=== PATIENT | female | born 1990 | race Caucasian/White ===

== ENCOUNTER 2016-06-03 20:13 | Observation (INO) | payer MEDICAID ==
[2016-06-03] MEDS ORDERED: ONDANSETRON 2MG/ML, 2ML ONE (22:21)
[2016-06-03] MEDS ORDERED: D5%-LACTATED RINGERS 1,000 ML IV ONE ×2 (22:30→23:30)
[2016-06-03] MEDS ORDERED: ONDANSETRON 2MG/ML, 2ML IVPush PRN (22:30)
== END 2016-06-04 01:06 | disposition home or self-care (01) ==
LOC: LDOP 20:13 → LDIP 21:44
PROVIDERS: ADMIT Obstetrics & Gynecology; ATTEND Obstetrics & Gynecology
DX: O26.899 Other specified pregnancy related conditions, unspecified trimester (principal); M54.9 Dorsalgia, unspecified; Z3A.00 Weeks of gestation of pregnancy not specified
CPT/HCPCS: 59025; 81003; 87086; 96361; 96374; G0378; J2405; 96360; 99201; 99211; G0463; J7121

== ENCOUNTER 2016-07-30 18:36 | Outpatient (CLI) | payer MEDICAID ==
[~2016-07-30] VITALS: Ht 162.6 cm; Wt 133.6 kg
[2016-07-30 20:37] VITALS: BP 136/80
== END 2016-07-30 20:35 | disposition home or self-care (01) ==
LOC: LDOP 18:36
PROVIDERS: ATTEND Obstetrics & Gynecology
DX: O26.893 Other specified pregnancy related conditions, third trimester (principal); O42.92 Full-term premature rupture of membranes, unspecified as to length of time between rupture and onset of labor; O62.9 Abnormality of forces of labor, unspecified; O48.0 Post-term pregnancy; R10.9 Unspecified abdominal pain; Z3A.40 40 weeks gestation of pregnancy
CPT/HCPCS: 59025; 81001; 87086; 89060; 99211; G0463; Q0114

== ENCOUNTER 2016-08-03 20:39 | Observation (INO) | payer MEDICAID | END 2016-08-04 00:30 | disposition home or self-care (01) | LOC: LDOP 20:39 → LDIP 21:31 | PROVIDERS: ADMIT Obstetrics & Gynecology; ATTEND Obstetrics & Gynecology | DX: O48.0 Post-term pregnancy (principal); Z3A.40 40 weeks gestation of pregnancy | CPT/HCPCS: 36415; 59025; 85025; 85384; 85460; 99211; G0378; G0463 ==

== ENCOUNTER 2016-08-06 08:47 | Inpatient (IN) | payer MEDICAID ==
[~2016-08-06] VITALS: Ht 162.6 cm; Wt 134.1 kg
[2016-08-06] MEDS: FENTANYL PF 100 MCG/2ML IVPush PRN (05:10)
[2016-08-06] MEDS: LACTATED RINGERS 1,000 ML IV SCH (20:30)
[2016-08-06] MEDS ORDERED: MISOPROSTOL 25 MCG TABLET ONE (20:56)
[2016-08-06] MEDS ORDERED: NEWBORN KIT ONE (21:39)
[2016-08-07] MEDS ORDERED: OXYTOCIN 10 UNITS/ML, 1ML ONE (02:20)
[2016-08-07] MEDS ORDERED: KETOROLAC 30 MG/1 ML ONE (02:20)
[2016-08-07] MEDS ORDERED: EPHEDRINE 50 MG/ML, 1ML ONE (02:20)
[2016-08-07] MEDS ORDERED: CEFAZOLIN 1,000 MG ONE (02:20)
[2016-08-07] MEDS ORDERED: METOCLOPRAMIDE 5 MG/ML, 2ML ONE (02:20)
[2016-08-07] MEDS ORDERED: FENTANYL PF 100 MCG/2ML ONE ×2 (05:02→07:53)
[2016-08-07] MEDS ORDERED: ONDANSETRON 2MG/ML, 2ML ONE (07:52)
[2016-08-07] MEDS: FENTANYL PF 100 MCG/2ML IVPush PRN (08:11)
[2016-08-07] MEDS: LACTATED RINGERS 1,000 ML IV SCH ×3 (08:45→16:58)
[2016-08-07] MEDS ORDERED: FENTANYL/BUPIV./NS/PF 250 ML EPIDCONT ONE (13:52)
[2016-08-07] MEDS ORDERED: OXYTOCIN 30U/ 0.9% NaCL 500ML 500 ML IV PRN (14:10)
[2016-08-07] MEDS ORDERED: OXYTOCIN 30U/ 0.9% NaCL 500ML 500 ML IV ONE (14:10)
[2016-08-07] MEDS ORDERED: ONDANSETRON 2MG/ML, 2ML IVPush PRN (14:30)
[2016-08-07] MEDS ORDERED: TERBUTALINE 1 MG/ML, 1ML IVPush PRN (14:30)
[2016-08-07] MEDS ORDERED: FENTANYL/BUPIV./NS/PF 250 ML EPIDCONT SCH (14:34)
[2016-08-07] MEDS ORDERED: LACTATED RINGERS 1,000 ML IVBOLUS PRN (15:00)
[2016-08-07] MEDS ORDERED: EPHEDRINE 50 MG/ML, 1ML IVPush PRN (15:00)
[2016-08-07] MEDS ORDERED: NALOXONE 0.4 MG/ML, 1ML IVPush PRN (15:00)
[2016-08-07] MEDS ORDERED: LIDOCAINE 1%, 20ML ONE (15:47)
[2016-08-07] MEDS ORDERED: MISOPROSTOL 200 MCG TABLET ONE (15:47)
[2016-08-07] MEDS ORDERED: OXYTOCIN 30U/ 0.9% NaCL 500ML 500 ML ONE (15:47)
[2016-08-07] MEDS: D5%-LACTATED RINGERS 1,000 ML IV SCH (22:10)
[2016-08-07] MEDS ORDERED: LACTATED RINGERS 1,000 ML INTUTE PRN (23:00)
[2016-08-07] MEDS ORDERED: LACTATED RINGERS 1,000 ML INTUTE SCH (23:00)
[2016-08-08] MEDS ORDERED: MISOPROSTOL 25 MCG TABLET VG PRN (01:00)
[2016-08-08] MEDS ORDERED: LIDOCAINE/MPF 2%-EPI 1:200K, 20 ML ONE (01:41)
[2016-08-08] MEDS: LACTATED RINGERS 1,000 ML IV SCH ×8 (01:54→21:54)
[2016-08-08] MEDS: OXYTOCIN 30U/ 0.9% NaCL 500ML 500 ML IV SCH ×3 (01:54→21:54)
[2016-08-08] MEDS ORDERED: ACETAMINOPHEN 325 MG TABLET PO PRN ×3 (02:00)
[2016-08-08] MEDS ORDERED: CARBOPROST TROMETHAMINE 250 MCG/ML, 1ML IM PRN (02:00)
[2016-08-08] MEDS ORDERED: METOCLOPRAMIDE 5 MG/ML, 2ML IV PRN (02:00)
[2016-08-08] MEDS ORDERED: ONDANSETRON 2MG/ML, 2ML IV PRN (02:00)
[2016-08-08] MEDS ORDERED: GLYCERIN ADULT SUPP PR PRN (02:00)
[2016-08-08] MEDS ORDERED: OXYcodone/APAP 5/325MG TABLET PO PRN (02:00)
[2016-08-08] MEDS ORDERED: MEPERIDINE/PF 25MG/0.5ML IM PRN (02:00)
[2016-08-08] MEDS ORDERED: BISACODYL 10 MG SUPP PR PRN (02:00)
[2016-08-08] MEDS ORDERED: MEPERIDINE/PF 50 MG/ML IM PRN (02:00)
[2016-08-08] MEDS ORDERED: CALCIUM CARBONATE 500 MG TAB.CHEW PO PRN (02:00)
[2016-08-08] MEDS ORDERED: DIPH,PERTUSS(ACELL),TET VAC/PF NC IM-VACC PRN (02:00)
[2016-08-08] MEDS ORDERED: SIMETHICONE 80 MG CHEW TAB PO PRN (02:00)
[2016-08-08] MEDS ORDERED: MISOPROSTOL 200 MCG TABLET PR PRN (02:00)
[2016-08-08] MEDS ORDERED: METOCLOPRAMIDE 5 MG/ML, 2ML ONE (02:08)
[2016-08-08] MEDS ORDERED: SODIUM CITRATE/CITRIC ACID 30 ML UDC ONE (02:08)
[2016-08-08] MEDS ORDERED: FENTANYL PF 100 MCG/2ML ONE (02:46)
[2016-08-08] MEDS: KETOROLAC 30 MG/1 ML IV SCH ×4 (03:00→22:33)
[2016-08-08] MEDS ORDERED: morphine SULFATE 10 MG/ML, 1ML ONE (03:48)
[2016-08-08] MEDS: morphine SULFATE 10 MG/ML, 1ML IVPush PRN ×4 (03:52→05:30)
[2016-08-08] MEDS ORDERED: LACTATED RINGERS 1,000 ML IV SCH ×2 (04:45→05:00)
[2016-08-08] MEDS ORDERED: OXYTOCIN 30U/ 0.9% NaCL 500ML 500 ML IV SCH (04:45)
[2016-08-08] MEDS ORDERED: LACTATED RINGERS 1,000 ML IVBOLUS ONE (05:00)
[2016-08-08 05:50] VITALS: BP 119/77
[2016-08-08] MEDS: D5%-LACTATED RINGERS 1,000 ML IV SCH (06:10)
[2016-08-08 07:20] VITALS: BP 124/70
[2016-08-08] MEDS: PRENATAL VIT/IRON/FA 1 EACH TABLET PO SCH (09:32)
[2016-08-08] MEDS: DOCUSATE 100 MG CAPSULE PO PRN (09:32)
[2016-08-08 11:31] VITALS: BP 110/60
[2016-08-08 15:49] VITALS: BP 98/52
[2016-08-08 20:36] VITALS: BP 108/74
[2016-08-09] MEDS: OXYTOCIN 30U/ 0.9% NaCL 500ML 500 ML IV SCH (00:01)
[2016-08-09 01:34] VITALS: BP 111/68
[2016-08-09] MEDS: LACTATED RINGERS 1,000 ML IV SCH ×4 (01:54→17:54)
[2016-08-09 04:49] VITALS: BP 112/71
[2016-08-09] MEDS: KETOROLAC 30 MG/1 ML IV SCH ×4 (04:50→21:30)
[2016-08-09] MEDS: OXYcodone/APAP 5/325MG TABLET PO PRN ×3 (04:58→22:12)
[2016-08-09 07:10] VITALS: BP 103/59
[2016-08-09] MEDS: DOCUSATE 100 MG CAPSULE PO PRN ×2 (10:23→20:36)
[2016-08-09] MEDS: PRENATAL VIT/IRON/FA 1 EACH TABLET PO SCH (10:24)
[2016-08-09 11:13] LABS: ASPARTATE AMINO TRANSFERASE 13 U/L (15-37); BLOOD UREA NITROGEN 16 mg/dL (7-18)
[2016-08-09 20:30] VITALS: BP 116/70
[2016-08-09] MEDS: IBUPROFEN 600 MG TABLET PO PRN (20:36)
[2016-08-10 00:40] VITALS: BP 108/66
[2016-08-10] MEDS: LACTATED RINGERS 1,000 ML IV SCH ×2 (01:54→03:54)
[2016-08-10 03:33] VITALS: BP 127/89
[2016-08-10] MEDS: OXYTOCIN 30U/ 0.9% NaCL 500ML 500 ML IV SCH (03:54)
[2016-08-10] MEDS: IBUPROFEN 600 MG TABLET PO PRN (07:57)
[2016-08-10] MEDS: OXYcodone/APAP 5/325MG TABLET PO PRN (07:57)
[2016-08-10] MEDS: DOCUSATE 100 MG CAPSULE PO PRN (07:57)
[2016-08-10] MEDS: PRENATAL VIT/IRON/FA 1 EACH TABLET PO SCH (07:57)
[2016-08-10 08:38] VITALS: BP 132/85
[2016-08-10] MEDS ORDERED: OXYC-302 PO (11:39)
[2016-08-10] MEDS ORDERED: IBUP800T PO (11:39)
== END 2016-08-10 12:34 | disposition home or self-care (01) | DRG 765 ==
LOC: LDIP 20:00 → 2NW 08-08 05:30
PROVIDERS: ADMIT Obstetrics & Gynecology; ATTEND Obstetrics & Gynecology
PROC: 10D00Z1 Extraction of Products of Conception, Low, Open Approach (ICD-10-PCS; principal; 2016-08-08)
DX: O62.1 Secondary uterine inertia (principal); Z68.43 Body mass index [BMI] 50.0-59.9, adult; O99.354 Diseases of the nervous system complicating childbirth; O48.0 Post-term pregnancy; Z37.0 Single live birth; Z3A.41 41 weeks gestation of pregnancy; E66.01 Morbid (severe) obesity due to excess calories; O76 Abnormality in fetal heart rate and rhythm complicating labor and delivery; O99.214 Obesity complicating childbirth; O69.81X0 Labor and delivery complicated by cord around neck, without compression, not applicable or unspecified; O77.0 Labor and delivery complicated by meconium in amniotic fluid; G43.909 Migraine, unspecified, not intractable, without status migrainosus
CPT/HCPCS: 36415; 80053; 81001; 82248; 82803; 85025; 86850; 86900; 87086; J0690; J1885; J2405; J3010; J2270; J2590; J2765; J7120

== ENCOUNTER 2016-11-19 13:29 | Emergency (ER) | payer MEDICAID ==
[~2016-11-19] VITALS: Ht 162.6 cm; Wt 126.0 kg
[~2016-11-19 13:29] MED LIST: IBUP-1223 PO; OXYC-302 PO
[2016-11-19 13:43] VITALS: BP 125/84
== END 2016-11-19 14:50 | disposition home or self-care (01) ==
LOC: ED 14:30
DX: S20.362A Insect bite (nonvenomous) of left front wall of thorax, initial encounter (principal); S40.262A Insect bite (nonvenomous) of left shoulder, initial encounter; S30.861A Insect bite (nonvenomous) of abdominal wall, initial encounter; I10 Essential (primary) hypertension; W57.XXXA Bitten or stung by nonvenomous insect and other nonvenomous arthropods, initial encounter; Y93.89 Activity, other specified; Y92.89 Other specified places as the place of occurrence of the external cause; Y99.8 Other external cause status
CPT/HCPCS: 99282

== ENCOUNTER 2017-04-28 14:49 | Inpatient (IN) | payer MEDICAID ==
[~2017-04-28] VITALS: Ht 162.6 cm; Wt 137.9 kg
[2017-04-28 15:51] LABS: BASOPHILS # (AUTO) 0.02 x10^3/uL (0-0.1); BASOPHILS % (AUTO) 0 % (0-1); EOSINOPHILS # (AUTO) 0.01 x10^3/uL (0-0.4); EOSINOPHILS % (AUTO) 0 % (1-7); LYMPHOCYTES # (AUTO) 1.25 x10^3/uL (1-3.4); LYMPHOCYTES % (AUTO) 14 % (22-44); MD NO; MEAN CORPUSCULAR HEMOGLOBIN 28.1 pg (27.0-34.8); MEAN CORPUSCULAR HGB CONC 33.7 g/dL (32.4-35.8); MEAN CORPUSCULAR VOLUME 83.4 fL (80-100); MEAN PLATELET VOLUME 8.9 fL (7.4-10.4); MONOCYTES # (AUTO) 0.55 x10^3/uL (0.2-0.8); MONOCYTES % (AUTO) 6 % (2-9); NEUTROPHILS # (AUTO) 7.43 x10^3/uL (1.8-6.8); NEUTROPHILS % (AUTO) 80 % (42-75); PLATELET COUNT 270 x10^3/uL (130-400); RED BLOOD COUNT 5.53 x10^6/uL (3.82-5.3); RED CELL DISTRIBUTION WIDTH 12.6 % (9.6-15.2)
[2017-04-28] MEDS ORDERED: PROMETHAZINE 25 MG/ML, 1ML IM ONE (16:00)
[2017-04-28] MEDS ORDERED: SODIUM CHLORIDE FLUSH 10ML SYR IVF ONE (16:00)
[2017-04-28] MEDS ORDERED: SODIUM CHLORIDE 0.9% 1,000ML IVBOLUS ONE (16:00)
[2017-04-28] MEDS ORDERED: MORPHINE SULFATE 4 MG/ML, 1ML IVPush PRN (16:00)
[2017-04-28] MEDS ORDERED: ONDANSETRON 2MG/ML, 2ML IVPush ONE (16:00)
[2017-04-28 16:04] LABS: ALBUMIN 3.3 g/dL (3.4-5.0); ANION GAP 8 mmol/L (5-15); CALCIUM 8.7 mg/dL (8.5-10.1); CHLORIDE 110 mmol/L (98-107)
[2017-04-28] MEDS ORDERED: MORPHINE SULFATE 4 MG/ML, 1ML ONE (16:06)
[2017-04-28] MEDS ORDERED: PROMETHAZINE 25 MG/ML, 1ML ONE ×2 (16:06→19:55)
[2017-04-28] MEDS ORDERED: ONDANSETRON 2MG/ML, 2ML ONE ×2 (16:07→19:32)
[2017-04-28 16:12] LABS: ALANINE AMINOTRANSFERASE 406 U/L (12-78); ALKALINE PHOSPHATASE 141 U/L (45-117); BILIRUBIN,TOTAL 2.4 mg/dL (0.2-1.0); CREATININE 0.92 mg/dL (0.55-1.02); TOTAL PROTEIN 7.1 g/dL (6.4-8.2)
[2017-04-28 16:41] LABS: MICROSCOPIC INDICATED
[2017-04-28 16:44] LABS: CULTURE INDICATED? YES
[2017-04-28] MEDS ORDERED: CEFOTETAN PMX 1GM/50ML 50 ML IV ONE (17:00)
[2017-04-28] MEDS ORDERED: CEFOTETAN PMX 1GM/50ML 50 ML ONE ×2 (17:47→19:12)
[2017-04-28] MEDS ORDERED: EPINEPHRINE 1 MG/ML, 1ML ONE (18:27)
[2017-04-28] MEDS ORDERED: BUPIVACAINE/PF 0.5% ONE (18:27)
[2017-04-28] MEDS: SODIUM CHLORIDE 0.9% 1,000 ML IV SCH (18:31)
[2017-04-28] MEDS ORDERED: GLYCOPYRROLATE 0.2MG/1ML, 5ML ONE (18:57)
[2017-04-28] MEDS ORDERED: DEXAMETHASONE 4 MG/ML, 1ML ONE ×2 (18:57→19:12)
[2017-04-28] MEDS ORDERED: PROPOFOL 10 MG/ML, 20ML ONE ×2 (18:57→19:12)
[2017-04-28] MEDS ORDERED: NEOSTIGMINE 1 MG/ML, 10ML ONE ×2 (18:57→19:40)
[2017-04-28] MEDS ORDERED: ROCURONIUM 10MG/ML,5ML ONE (18:57)
[2017-04-28] MEDS ORDERED: KETOROLAC 30 MG/1 ML ONE ×2 (18:57→19:42)
[2017-04-28] MEDS ORDERED: ACETAMINOPHEN 325 MG TABLET PO PRN ×2 (19:00→19:30)
[2017-04-28] MEDS ORDERED: BISACODYL 10 MG SUPP PR PRN (19:00)
[2017-04-28] MEDS ORDERED: POLYETHYLENE GLYCOL 17 GM PACKET PO PRN (19:00)
[2017-04-28] MEDS: NICOTINE 7 MG/24 HR PATCH.TD24 TD SCH (19:00)
[2017-04-28] MEDS ORDERED: ONDANSETRON 2MG/ML, 2ML IVPush PRN ×2 (19:00→19:30)
[2017-04-28] MEDS ORDERED: FENTANYL PF 100 MCG/2ML ONE ×2 (19:11→19:34)
[2017-04-28] MEDS ORDERED: ROCURONIUM 10 MG/ML,10ML ONE (19:12)
[2017-04-28] MEDS ORDERED: OXYcodone 5 MG/5 ML ORAL.SOL UDC PO PRN (19:30)
[2017-04-28] MEDS ORDERED: FENTANYL PF 100 MCG/2ML IV PRN (19:30)
[2017-04-28] MEDS ORDERED: MEPERIDINE/PF 25MG/0.5ML IVPush PRN (19:30)
[2017-04-28] MEDS ORDERED: HYDROmorphone 1 MG/ML, 1ML IV PRN (19:30)
[2017-04-28] MEDS ORDERED: hydrALAzine 20 MG/ML, 1ML IV PRN (19:30)
[2017-04-28] MEDS ORDERED: LABETALOL 5MG/ML, 20ML IV PRN (19:30)
[2017-04-28] MEDS ORDERED: EPHEDRINE 50 MG/ML, 1ML IVPush PRN (19:30)
[2017-04-28] MEDS ORDERED: METOPROLOL 1 MG/ML, 5ML IV PRN (19:30)
[2017-04-28] MEDS ORDERED: PROMETHAZINE 25 MG/ML, 1ML IV PRN (19:30)
[2017-04-28] MEDS ORDERED: ALBUTEROL SULFATE 2.5 MG/3 ML NPPB PRN (19:30)
[2017-04-28] MEDS ORDERED: GLYCOPYRROLATE 0.4 MG/2 ML, 2ML ONE (19:40)
[2017-04-28] MEDS ORDERED: OMNIPAQUE 350 MG/ML, 50 ML BOTTLE ONE (19:48)
[2017-04-28] MEDS ORDERED: OXYcodone 5 MG/5 ML ORAL.SOL UDC ONE (19:55)
[2017-04-28] MEDS ORDERED: MEPERIDINE/PF 50 MG/ML ONE (20:19)
[2017-04-28 21:54] LABS: INTERNATIONAL NORMALIZED RATIO 1.01 (0.93-1.1); PROTHROMBIN TIME 10.4 Seconds (9.6-11.5)
[2017-04-28] MEDS: morphine SULFATE 10 MG/ML, 1ML IVPush PRN (23:12)
[2017-04-28 23:54] VITALS: BP 121/70
[2017-04-29] MEDS ORDERED: PNEUMOCOCCAL 23 VACCINE IM-VACC ONE (00:30)
[2017-04-29] MEDS: SODIUM CHLORIDE 0.9% 1,000 ML IV SCH ×2 (02:38→10:31)
[2017-04-29] MEDS: morphine SULFATE 10 MG/ML, 1ML IVPush PRN ×5 (02:59→19:58)
[2017-04-29 03:04] VITALS: BP 114/84
[2017-04-29 05:58] LABS: BASOPHILS % (AUTO) 0 % (0-1); EOSINOPHILS % (AUTO) 0 % (1-7); LYMPHOCYTES # (AUTO) 0.73 x10^3/uL (1-3.4); LYMPHOCYTES % (AUTO) 8 % (22-44); MD NO; MEAN CORPUSCULAR HEMOGLOBIN 28.5 pg (27.0-34.8); MEAN CORPUSCULAR HGB CONC 34.3 g/dL (32.4-35.8); MEAN CORPUSCULAR VOLUME 83.2 fL (80-100); MEAN PLATELET VOLUME 9.3 fL (7.4-10.4); MONOCYTES # (AUTO) 0.18 x10^3/uL (0.2-0.8); MONOCYTES % (AUTO) 2 % (2-9); NEUTROPHILS # (AUTO) 8.54 x10^3/uL (1.8-6.8); NEUTROPHILS % (AUTO) 90 % (42-75); PLATELET COUNT 252 x10^3/uL (130-400); RED CELL DISTRIBUTION WIDTH 12.7 % (9.6-15.2)
[2017-04-29 06:16] LABS: ALANINE AMINOTRANSFERASE 485 U/L (12-78); ALBUMIN 2.7 g/dL (3.4-5.0); ANION GAP 7 mmol/L (5-15); CALCIUM 8.1 mg/dL (8.5-10.1); CHLORIDE 113 mmol/L (98-107); CREATININE 0.96 mg/dL (0.55-1.02)
[2017-04-29 06:18] LABS: ALKALINE PHOSPHATASE 146 U/L (45-117); BILIRUBIN,TOTAL 0.7 mg/dL (0.2-1.0); TOTAL PROTEIN 6.2 g/dL (6.4-8.2)
[2017-04-29 06:33] VITALS: BP 120/81
[2017-04-29] MEDS: CEFOTETAN PMX 1GM/50ML 50 ML IV SCH ×2 (07:48→19:58)
[2017-04-29] MEDS: SENNA/DOCUSATE TABLET PO SCH (07:54)
[2017-04-29] MEDS ORDERED: FENTANYL PF 100 MCG/2ML ONE ×3 (11:35→13:12)
[2017-04-29] MEDS ORDERED: MIDAZOLAM 1 MG/ML, 2ML ONE (11:35)
[2017-04-29] MEDS ORDERED: DEXAMETHASONE 4 MG/ML, 1ML ONE (12:06)
[2017-04-29] MEDS ORDERED: PROPOFOL 10 MG/ML, 20ML ONE (12:06)
[2017-04-29] MEDS ORDERED: SUCCINYLCHOLINE 20 MG/ML, 10ML ONE (12:06)
[2017-04-29] MEDS ORDERED: ONDANSETRON 2MG/ML, 2ML ONE (12:06)
[2017-04-29] MEDS: FENTANYL PF 100 MCG/2ML IV PRN ×2 (12:50→13:26)
[2017-04-29] MEDS ORDERED: OMNIPAQUE 350 MG/ML, 50 ML BOTTLE ONE (12:58)
[2017-04-29] MEDS ORDERED: ACETAMINOPHEN 650 MG/20.3 ML UDC ONE (13:12)
[2017-04-29] MEDS ORDERED: OXYcodone 5 MG/5 ML ORAL.SOL UDC ONE (13:13)
[2017-04-29 13:54] VITALS: BP 140/90
[2017-04-29] MEDS ORDERED: ACETAMINOPHEN 325 MG TABLET PO PRN (14:00)
[2017-04-29] MEDS ORDERED: OXYcodone 5 MG/5 ML ORAL.SOL UDC PO PRN (14:00)
[2017-04-29] MEDS: NICOTINE 7 MG/24 HR PATCH.TD24 TD SCH (15:36)
[2017-04-29 20:30] VITALS: BP 134/84
[2017-04-30] MEDS: morphine SULFATE 10 MG/ML, 1ML IVPush PRN ×2 (00:47→06:44)
[2017-04-30] MEDS: SODIUM CHLORIDE 0.9% 1,000 ML IV SCH (00:48)
[2017-04-30 02:57] VITALS: BP 122/72
[2017-04-30 08:23] LABS: ALANINE AMINOTRANSFERASE 279 U/L (12-78); ALBUMIN 2.6 g/dL (3.4-5.0); ANION GAP 8 mmol/L (5-15); CALCIUM 7.6 mg/dL (8.5-10.1); CHLORIDE 111 mmol/L (98-107); CREATININE 0.92 mg/dL (0.55-1.02)
[2017-04-30 08:25] LABS: ALKALINE PHOSPHATASE 117 U/L (45-117); BILIRUBIN,TOTAL 0.4 mg/dL (0.2-1.0); TOTAL PROTEIN 5.8 g/dL (6.4-8.2)
[2017-04-30 08:38] VITALS: BP 103/72
[2017-04-30] MEDS: CEFOTETAN PMX 1GM/50ML 50 ML IV SCH (08:59)
[2017-04-30] MEDS: SENNA/DOCUSATE TABLET PO SCH (08:59)
[2017-04-30] MEDS ORDERED: IBUP-1221 PO (09:45)
[2017-04-30] MEDS ORDERED: ACET325T14 PO (09:45)
== END 2017-04-30 10:49 | disposition home or self-care (01) | DRG 418 ==
LOC: OR 18:07 → EDIP 18:33 → 4NOR 20:43 → DCLOUNGE 04-30 10:38
PROVIDERS: ADMIT Internal Medicine Pulmonary Disease; ATTEND Internal Medicine Pulmonary Disease
PROC: 0FT44ZZ Resection of Gallbladder, Percutaneous Endoscopic Approach (ICD-10-PCS; principal; 2017-04-28 19:00)
PROC: 0F798DZ Dilation of Common Bile Duct with Intraluminal Device, Via Natural or Artificial Opening Endoscopic (ICD-10-PCS; 2017-04-29)
PROC: BF101ZZ Fluoroscopy of Bile Ducts using Low Osmolar Contrast (ICD-10-PCS; 2017-04-29)
PROC: 0FC98ZZ Extirpation of Matter from Common Bile Duct, Via Natural or Artificial Opening Endoscopic (ICD-10-PCS; 2017-04-29)
DX: K80.62 Calculus of gallbladder and bile duct with acute cholecystitis without obstruction (principal); E44.1 Mild protein-calorie malnutrition; E66.01 Morbid (severe) obesity due to excess calories; K86.89 Other specified diseases of pancreas; Z68.43 Body mass index [BMI] 50.0-59.9, adult; N39.0 Urinary tract infection, site not specified; F17.210 Nicotine dependence, cigarettes, uncomplicated; Z23 Encounter for immunization
CPT/HCPCS: 36415; 74300; 74328; 76700; 80053; 81001; 82150; 83690; 84703; 85025; 85610; 86677; 87086; 88304; 90732; 96372; 96374; 96375; J0171; J1100; J1885; J2175; J2250; J2405; J2550; J2704; J2710; J3010; J3490; Q9967; C1769; C1894; C2625; J0330; J2270; J7030; S0074

== ENCOUNTER 2017-05-29 10:24 | Day surgery (SDC) | payer MEDICAID ==
[~2017-05-29] VITALS: Ht 162.6 cm; Wt 129.1 kg
[~2017-05-29 10:24] MED LIST changes: +ACET325T14 PO; +IBUP-1221 PO
[2017-05-29] MEDS ORDERED: LACTATED RINGERS 1,000 ML IV SCH (11:05)
[2017-05-29 11:08] VITALS: BP 136/95
[2017-05-29 11:26] LABS: HCG UR SG 1.033 (1.003-1.030)
[2017-05-29] MEDS ORDERED: PLEASE ENTER HEIGHT AND WEIGHT MC SCH (11:30)
[2017-05-29] MEDS ORDERED: SUCCINYLCHOLINE 20 MG/ML, 10ML ONE (12:28)
[2017-05-29] MEDS ORDERED: LIDOCAINE GEL 2%, 5ML ONE (12:28)
[2017-05-29] MEDS ORDERED: FENTANYL PF 100 MCG/2ML ONE (12:28)
[2017-05-29] MEDS ORDERED: PROPOFOL 10 MG/ML, 20ML ONE (12:28)
[2017-05-29] MEDS ORDERED: MIDAZOLAM 1 MG/ML, 2ML ONE (12:28)
[2017-05-29] MEDS ORDERED: LIDOCAINE-MPF 2% ,5ML ONE (12:28)
[2017-05-29] MEDS ORDERED: METOPROLOL 1 MG/ML, 5ML ONE (16:04)
[2017-05-29] MEDS ORDERED: ONDANSETRON 2MG/ML, 2ML ONE (16:04)
== END 2017-05-29 14:25 | disposition home or self-care (01) ==
LOC: OUT 10:24
PROVIDERS: ATTEND Internal Medicine
DX: K80.50 Calculus of bile duct without cholangitis or cholecystitis without obstruction (principal); Z90.49 Acquired absence of other specified parts of digestive tract; Z98.890 Other specified postprocedural states
CPT/HCPCS: 43275; 74328; 81025; C1769; J0330; J2250; J2405; J2704; J3010; J3490

== ENCOUNTER 2019-04-10 19:14 | Emergency (ER) | payer MEDICAID, OTHER ==
[~2019-04-10] VITALS: Ht 162.6 cm; Wt 115.3 kg
[2019-04-10 19:15] VITALS: BP 142/94
== END 2019-04-10 21:49 | disposition home or self-care (01) ==
LOC: ED 21:43
DX: S39.012A Strain of muscle, fascia and tendon of lower back, initial encounter (principal); M51.36 Other intervertebral disc degeneration, lumbar region; V49.09XA Driver injured in collision with other motor vehicles in nontraffic accident, initial encounter; Y93.89 Activity, other specified; Y92.89 Other specified places as the place of occurrence of the external cause; Y99.8 Other external cause status
CPT/HCPCS: 72110; 99283